=== PATIENT | female | born 1995 | race Caucasian/White ===

== ENCOUNTER 2016-04-19 03:49 | Emergency (ER) | payer SELFPAY ==
[2016-04-19 04:01] VITALS: BP 126/72
--- NOTE | 2016-04-19 04:15 | EDM.PDOC ---
ED HPI RENAL/ - General Chief Complaint: Genitourinary Problem Stated Complaint: stomach ache [phone] Time Seen by Provider: 04/19/16 04:13 Source of Information: Reports: Patient History Limitations: Reports: No limitations - History of Present Illness INITIAL COMMENTS - FREE TEXT/NARRATIVE: c/o of abdominal pain and chill, similar to previous UTI's, - Related Data Allergies/ADRs: Allergies Allergy/AdvReac Type Severity Reaction Status Date / Time No Known Allergies Allergy Verified 04/19/16 04:01 Home Meds: Home Meds . [No Known Home Meds] 01/04/16 [History] Past Medical History HEENT History: Reports: None Cardiovascular History: Reports: None Respiratory History: Reports: None Gastrointestinal History: Reports: None Genitourinary History: Reports: UTI, recurrent [employer] History: Reports: Musculoskeletal History: Reports: None Neurological History: Reports: None Psychiatric History: Reports: ADHD Endocrine/Metabolic History: Reports: None Hematologic History: Reports: Anemia Immunologic History: Reports: None Oncologic (Cancer) History: Reports: None Dermatologic History: Reports: None - Infectious Disease History Infectious Disease History: Reports: None - Past Surgical History Head Surgeries/Procedures: Reports: None Female Surgical History: Reports: Other (see below) Other Female Surgeries/Procedures: hx of bladder operation to make larger- age 6 Social & Family History - Family History Family Medical History: Noncontributory - Tobacco Use Smoking Status *Q: Never Smoker Second Hand Smoke Exposure: No - Caffeine Use Caffeine Use: Reports: None - Alcohol Use Days Per Week of Alcohol Use: 0 - Recreational Drug Use Recreational Drug Use: No ED ROS GENERAL - Review of Systems Review Of Systems: See Below Constitutional: Reports: chills HEENT: Reports: No symptoms Respiratory: Reports: no symptoms Cardiovascular: Reports: No symptoms GI/Abdominal: Reports: Abdominal pain : Reports: dysuria, frequency Musculoskeletal: Reports: no symptoms Skin: Reports: no symptoms ED EXAM, RENAL/ - Physical Exam Exam: See Below Exam Limited By: No limitations General Appearance: alert, mild distress Eye Exam: bilateral eye: EOMI Nose: normal inspection Throat/Mouth: Normal inspection Head: atraumatic, normocephalic Neck: normal inspection Respiratory/Chest: no respiratory distress, lungs clear, normal breath sounds Cardiovascular: normal peripheral pulses, regular rate, rhythm, tachycardia GI/Abdominal: normal bowel sounds, soft, tender (genera abdominal pain greater suprapubic) Back Exam: normal inspection. No: CVA tenderness (L), CVA tenderness (R) Neurological: alert, oriented Psychiatric: normal affect Skin Exam: Warm, Dry, Intact Course - Vital Signs Last Recorded V/S: Last Vital Signs Temp 100.2 F 04/19/16 03:52 Pulse 133 H 04/19/16 03:52 Resp 18 04/19/16 03:52 BP 126/72 04/19/16 03:52 Pulse Ox 99 04/19/16 03:52 - Orders/Labs/Meds Labs: Laboratory Tests 04/19/16 04/19/16 Range/Units 03:54 03:54 Urine Color Yellow (YELLOW) Urine Appearance Cloudy (CLEAR) Urine pH 6.0 (5.0-9.0) Ur Specific [place] >= 1.030 (1.005-1.030) Urine Protein 30 H (NEGATIVE) Urine Glucose (UA) Negative (NEGATIVE) Urine Ketones Negative (NEGATIVE) Urine Occult Blood Small H (NEGATIVE) Urine Nitrite Positive H (NEGATIVE) Urine Bilirubin Negative (NEGATIVE) Urine Urobilinogen 1.0 (0.2-1.0) mg/dL Ur Leukocyte Esterase Moderate H (NEGATIVE) Urine RBC 5-10 H /HPF Urine WBC 40-50 H (0-5/HPF) /HPF Ur Epithelial Cells Moderate H /HPF Urine Bacteria Moderate H (0-FEW/HPF) /HPF Urine Yeast Rare H (0/HPF) /HPF Urine HCG, Qual Negative Meds: Medications Discontinued Medications Generic Name Dose Route Start Last Admin Trade Name Magaly PRN Reason Stop Dose Admin Ciprofloxacin 500 mg 04/19/16 04:25 04/19/16 04:29 Ciprofloxacin Hcl PO 04/19/16 04:26 500 mg ONETIME ONE Administration Phenazopyridine HCl 190 mg 04/19/16 04:25 04/19/16 04:29 Urinary Pain Relief PO 04/19/16 04:26 190 mg ONETIME ONE Administration Departure - Departure Time of Disposition: 04:28 Disposition: Home, Self-Care 01 Condition: good Clinical Impression: UTI, Urinary tract infectious disease Instructions: Urinary Tract Infection, Adult, [id number] Forms: ED Department Discharge Additional Instructions: cipro 500mg one twice daily for 5 days pyridium 200mg one every 8 hours as needed #6 increase fluid intake recheck in one week, sooner if fevers, vomiting, back pain tylenol every 4 hours for discomfort/fever
[2016-04-19] MEDS ORDERED: Ciprofloxacin 500 MG Tab PO ONE (04:25)
[2016-04-19] MEDS ORDERED: Phenazopyridine 95 MG Tab PO ONE (04:25)
== END 2016-04-19 04:33 | disposition home or self-care (01) ==
LOC: DL.ED 03:49
DX: N39.0 Urinary tract infection, site not specified (principal); Z87.440 Personal history of urinary (tract) infections; Z98.890 Other specified postprocedural states
CPT/HCPCS: 81001; 81025; 99284; A9270; 99283

== ENCOUNTER 2018-05-10 10:40 | Inpatient (IN) | payer MEDICAID, OTHER ==
[2018-05-10] MEDS: Lactated Ringers 1,000 ML IV SCH ×2 (09:45→12:28)
[2018-05-10] MEDS ORDERED: Sodium Chloride 0.9% 10 ML Syringe FLUSH PRN ×2 (11:22→13:22)
[2018-05-10] MEDS ORDERED: Lidocaine 1% 30 ML SDV INJECT PRN (11:30)
[2018-05-10] MEDS ORDERED: Carboprost Tromethamine 250 MCG/1 ML Amp IM PRN ×2 (11:30→13:22)
[2018-05-10] MEDS ORDERED: Ondansetron 4 MG/2 ML SDV IV PRN (11:30)
[2018-05-10] MEDS ORDERED: Oxytocin/Normal Saline 30 UNIT/500 ML BAG IV SCH (11:30)
[2018-05-10] MEDS ORDERED: Methylergonovine 0.2 MG/1 ML Amp IM PRN (11:30)
[2018-05-10] MEDS ORDERED: Tranexamic Acid 1,000 MG in Sodium Chloride 0.9% 100 ML IV PRN ×2 (11:30→13:22)
[2018-05-10] MEDS ORDERED: Misoprostol 400 MCG (4 X 100 MCG TAB) RECTAL PRN ×2 (11:30→13:22)
[2018-05-10] MEDS ORDERED: Lactated Ringers 500 ML IV ONE (11:30)
--- NOTE | 2018-05-10 12:06 | HP ---
CHIEF COMPLAINT: Pelvic pain, increasing contractions. HISTORY OF PRESENT ILLNESS: The patient is a 22-year-old, 3, para 2-0-0 - 2, presenting at an unknown gestation, presenting with labor contractions. Patient stated that contractions started around 8 a.m. this morning, increasing in intensity and frequencies, so she presented to [facility] Labor [facility] Delivery. The patient states she has not had any care and has not seen any provider for this . She is unknown of her last menstrual period and unknown of her gestational age. She has history of preeclampsia in her first and has had 2 normal spontaneous vaginal deliveries at term. The patient has not ate or drank anything since last night. She states she is in lots of immense pain that is in her lower pelvis radiating up into her abdomen and to her back. HISTORY: The patient has had 2 prior spontaneous vaginal deliveries at term with no complications. The patient does have a history of preeclampsia with her first . PAST MEDICAL HISTORY: No significant past medical history. PAST SURGICAL HISTORY: No significant past surgical history. FAMILY HISTORY: No known family history. SOCIAL HISTORY: The patient states she lives in [place] by herself. She is visiting [facility] due to visiting her mother who is not with her at this time. REVIEW OF SYSTEMS: The patient denied fever, chills, chest pain, shortness of breath, and any lower extremity edema or swelling. No changes in bowel or bladder function at this time. otherwise ROS fully reviewed and felt to be contributory per HPI OBJECTIVE: Vital Signs: Pending. General: Patient is in extreme pain, screaming, and yelling in the bed. HEENT: Grossly normal. Pulmonary: Lungs are clear to auscultation bilaterally. Cardiovascular: Regular rate and rhythm. No murmurs noted. Abdomen: Nontender to palpation. Gravid uterus measuring 34 cm. Unknown of position. Extremities: No lower extremity edema. Nontender to calf palpation bilaterally. Neurologic: Grossly normal. Cranial nerves 2 through 12 intact. Cervical Check: Cervical check was refused due to intolerable condition. Guessing +1 station measuring 34 cm for gestation. LABORATORY DATA: Recent Lab Results: Hematology: WBC 11.1, RBC 3.86, hemoglobin 7.0, hematocrit 23.1, and platelet count 367. Ultrasound pending. ASSESSMENT: The patient is a 22-year-old, 3, para 2, presenting in labor of unknown gestational age with no care. History of preeclampsia in previous , on vitamins, and has no allergies. PLAN: Routine no care labs and u/s is pending. Waiting on ultrasound. Due to inability to tolerate exam and ultrasound, unavailable at this time- We are watching clinically and closely. The patient was seen today and evaluated by myself and Dr. Fan Ramey. Assessment is under advisement of Dr. Fan Ramey. seen and agreed-RENÉ MOD /[id number] ADWOA
[2018-05-10] MEDS ORDERED: Acetaminophen 325 MG Tab PO PRN (13:22)
[2018-05-10] MEDS ORDERED: Benzocaine/Menthol 20%-0.5% Spray 56 GM Canister TOP PRN (13:22)
[2018-05-10] MEDS ORDERED: Oxytocin 10 Units/1 ML SDV IM PRN (13:22)
[2018-05-10] MEDS ORDERED: Simethicone 80 MG Tab.Chew PO PRN (14:00)
[2018-05-10] MEDS: Docusate Sodium 100 MG Cap PO PRN (16:19)
[2018-05-10] MEDS: Ibuprofen 800 MG Tab PO PRN (16:19)
[2018-05-10] MEDS: Acetaminophen 325 MG Tab PO PRN (20:29)
[2018-05-10] MEDS ORDERED: Zolpidem 5 MG Tab PO PRN (21:00)
[2018-05-11] MEDS: Ibuprofen 800 MG Tab PO PRN (00:54)
[2018-05-11] MEDS: Acetaminophen 325 MG Tab PO PRN ×2 (04:48→14:27)
[2018-05-11] MEDS: Docusate Sodium 100 MG Cap PO PRN ×2 (09:04→20:19)
[2018-05-11] MEDS: Prenatal Multivitamin with Calcium/Folic Acid/Iron Tab PO SCH (09:04)
--- NOTE | 2018-05-11 11:21 | PN ---
DATE: 05/11/2018 SUBJECTIVE: The patient is a 22-year-old, 3, para 2, now para 3 female, who presented with no care in labor. The patient delivered a male via spontaneous vaginal delivery. Overnight, the patient reports doing well. She reports ability to get up to the bathroom, urinating well, tolerating general diet. She reports a normal amount of bleeding and cramping. She denies headaches, blurred vision, chest pain, shortness of breath, or lower extremity edema. Due to anemia of , the patient did receive 2 units of packed red blood cells yesterday and today reports feeling much better after that treatment. OBJECTIVE: Vital Signs: Temperature 97.6, HR 68 bpm, BP 130/82, RR 16 breaths per minute, and O2 saturation 100% on room air. General: Awake, alert, no acute distress. HEENT: Grossly normal. Cardiovascular: Regular rate and rhythm. No murmurs noted. Pulmonary: Lungs are clear to auscultation bilaterally. Abdomen: Soft, nondistended, normoactive bowel sounds. The patient is tender to palpation in lower abdomen. The patient's uterus is noted to be 2 cm below umbilicus and firm. Extremities: No lower extremity edema or calf tenderness to palpation bilaterally. Neurologic: Grossly normal. cbc reviewed from this morning with hgb increased. ASSESSMENT: The patient is a 22-year-old, 3, para now 3, status post a day #1 from spontaneous vaginal delivery to a male infant. The patient is doing well. PLAN: 1. Routine cares. 2. CBC ordered for tomorrow morning due to anemia and transfusion needed post delivery. 3. Continue to follow clinically and closely. The patient was seen and evaluated today by myself and Dr. Fan Ramey. Assessment and plan are under advisement of Dr. Ramey. seen and agreed-LUISW [facility] /[id number] MTDKaron
--- NOTE | 2018-05-11 12:10 | DEL ---
DATE: 05/10/2018 PREOPERATIVE DIAGNOSES: 1. Intrauterine , questionable dates. 2. No care. 3. Labor upon admission. 4. Advanced cervical dilation, suspect upon admission, unable to check cervix, because ultrasound not available or done. 5. Group B Streptococcus unknown. 6. History of preeclampsia with previous . 7. Anemia of with hemoglobin of 7.0, type and cross match for 2 units called stat as soon as that was noted. 8. 3, para 2-0-0-2. POSTOPERATIVE DIAGNOSES: 1. Intrauterine - delivered, suspect near term. 2. No care. 3. Labor upon admission. 4. Advanced cervical dilation, suspect upon admission, unable to check cervix, because ultrasound not available or done. 5. Group B Streptococcus unknown. 6. History of preeclampsia with previous . 7. Anemia of with hemoglobin of 7.0, type and cross match for 2 units called stat as soon as that was noted. 8. 3, para 2-0-0-2. 9. Abruption noted with delivery of bloody fluid with as well as old blood clot noted with delivery of the placenta approximately 200 mL in size. PROCEDURES PERFORMED: NST followed by spontaneous vaginal delivery. KILN FURNITURE CASTER: GEOVANY GrantIII. ANESTHESIA/ANALGESIA: None. ESTIMATED BLOOD LOSS: 300 mL. FINDINGS: Male. scores and weight pending. Appears near term. SUMMARY OF EVENTS: The patient is a 22-year-old, G3, P2-0-0-2, no care, who presented with contractions and suspected active labor. Stat ultrasound was called for, but was unable to be done as they were busy doing an echocardiogram. Subsequently, the patient was moved to a room as it was felt that she was transitioning and in labor. Vaginal exam was unable to be done, gingerly speculum exam was not tolerated by the patient. GC, Chlamydia, and wet prep were obtained and GBS was obtained as well. While in labor, the patient had big lewis of clear fluid. She felt that she needed to push and with the next contraction, she started pushing and vertex was noted. Socorro and myself donned sterile gown and gloves, and the patient pushed with contractions and vertex was delivered in RONAK presentation, followed by anterior and posterior shoulder as well as rest of the infant without difficulty with bloody- tinged fluid noted. Mouth and nares were suctioned. Cord was doubly clamped and cut, and was brought to team. Then, approximately 10 mL cord blood obtained for labs. Placenta was then delivered with gentle cord traction and fundal massage, delivered within approximately 5 to 10 minutes with a blood clot noted about 200 mL in size that was old and dark with the placenta, and trailing membranes which were gently teased from the vaginal region. Thereafter, Pitocin was started as well as fundal massage and bleeding significantly decreased. Small first-degree perineal laceration was noted without bleeding, non-repaired after discussion with the patient, less than 1 cm. A cath UA was done at this point in time and labs were obtained. At the current time of dictation, type and cross match is pending, to be given 2 units of packed red blood cells to this patient due to her severe anemia and now with suspected abruption. Her vital signs blood [id number] and 112/67 and heart rate 87, therefore we will proceed with blood transfusion as soon as blood is ready. The patient understands and agrees with the above treatment plan. Mother and infant are currently stable at the time of dictation. [facility] /[id number]
--- NOTE | 2018-05-11 12:39 | OBOUT ---
DATE: 05/10/2018 DATE AND TIME OF NST: Date: 05/10/2018. Time: 10:50 to 11:10. REASON FOR NST: 1. Intrauterine , questionable dates. 2. No care. 3. Contractions. 4. GBS unknown. 5. 3, para 2-0-0-2. 6. History of preeclampsia with previous . NST INTERPRETATION: During this time period, heart tone baseline is approximately 130 and there are at least two 15 x 15 beat per minute accelerations making this strip reactive. It is also noted to be reassuring. Tocometer reveals potential of 6 contractions during this time period. [employer] by the patient and breathing through them. PLAN: As the patient has had no care, initial vitals revealed blood pressure 131/77, heart rate 96, temperature 98.7, and no care labs were drawn. Stat ultrasound was called for, however, ultrasound is busy doing an echo at this point in time and there are no techs available to get the ultrasound done, therefore attempt was made for a gingerly speculum exam, and the patient refused this and did not tolerate even swabs to obtain a wet prep, GC, and chlamydia, which were obtained gingerly. Plan, at this point in time, we are awaiting ultrasound to further delineate future treatment plans. Fundal measurement was around 34, however, with the swab, it feels as if baby's head is lodged well into the pelvis and may be at a +1 station. Cannot do a vaginal exam at this point in time, because cannot rule out previa and do not know the presentation of the child at this time. We will need to follow closely. We will consider calling in the OR crew to be ready and available in the off chance that there is any concerns with the ultrasound once ultrasound is able to be done. Plans were discussed with the patient. I did discuss with her pain management. At this point in time, we will continue to follow clinically and closely, and we will proceed from there. The patient understands and agrees with the above treatment plan. [facility] /[id number]
[2018-05-12 09:10] VITALS: BP 126/90; PULSE 76
[2018-05-12] MEDS: Docusate Sodium 100 MG Cap PO PRN (09:32)
[2018-05-12] MEDS: Prenatal Multivitamin with Calcium/Folic Acid/Iron Tab PO SCH (09:32)
[2018-05-12] MEDS: Acetaminophen 325 MG Tab PO PRN (11:37)
--- NOTE | 2018-05-12 15:14 | DISCH ---
ADMITTING DIAGNOSES: 1. Intrauterine of unknown dates. 2. No care. 3. Admission in labor. 4. Advanced cervical dilation with the patient unable to tolerate exam, status unknown. 5. Group B streptococcus status unknown. 6. History of preeclampsia. 7. Anemia of . DISCHARGE DIAGNOSES: 1. Intrauterine of unknown dates. 2. No care. 3. Admission in labor. 4. Advanced cervical dilation with the patient unable to tolerate exam, status unknown. 5. Group B streptococcus status unknown. 6. History of preeclampsia. 7. Anemia of . 8. Placental abruption noted upon delivery. 9. Treatment with 2 units of packed red blood cells due to anemia. 10.First-degree laceration that did not require repair. BRIEF HISTORY: The patient is a 22-year-old, 3, now para 3 female with the above-listed diagnoses, who presented to Labor and Delivery in active labor with significant history of no care. Upon presentation, the patient's vitals were 131/77, heart rate 96, temperature 98.7, and no care. Labs were drawn. A stat ultrasound was called for; however, the ultrasound was busy and therefore attempt was made for a genital spec exam and the patient refused. The patient did not tolerate vaginal swab exam for wet prep, GC, chlamydia, but was able to obtain swabs. As the patient did not tolerate treatments, fundal measurement was measured around 34 cm. The patient was monitored closely, labor progressed, and upon , the baby's head was noted in canal. Baby boy was delivered at 11:51, was stimulated and bulb suctioned, cord was cut, and placed in warmer for further assessment. The patient was noted to have a first- degree perineal laceration that was hemostatic and did not need repair. HOSPITAL COURSE: Good. The patient initially endorsed soreness and tenderness. She reports tolerating general diet, ambulation, and urination well. She had mild cramping and mild lochia. She denied any symptoms of headaches, blurred vision, chest pain, shortness of breath, dizziness, lightheadedness, or lower extremity swelling throughout hospital stay. The patient is excited to return home and is feeling well enough to be discharged. managed services consultant was consulted and saw patient during her hospital stay. DISCHARGE CONDITION: Good. DISCHARGE PHYSICAL EXAMINATION: Vital Signs: Temp 98.6, HR 76 bpm, BP 126/90, RR 18 breaths per minute, and O2 saturation 99% on room air. General: Awake, alert, cooperative, resting in bed. HEENT: Grossly normal. Pulmonary: Lungs are clear to auscultation bilaterally. Cardiovascular: Regular rate and rhythm. No murmurs noted. Abdomen: Soft, nontender, and mildly distended. Normoactive bowel sounds. Uterine fundus palpated 2 cm below the umbilicus. Extremities: No edema, erythema, or tenderness noted in the lower extremities bilaterally. Neurologic: Cranial nerves 2 through 12 intact. No sensory or motor deficits noted. LABORATORY RESULTS: Hematology: WBC 11, RBC 5.01, HGB 10.5, HCT 33, MCV 65.9, MCH 21, MCHC 31.8, platelet count 328. Urinalysis: Color light yellow, appearance turbid, pH 7, specific gravity 1.010, protein 30, glucose negative, ketones negative, occult blood large, nitrites negative, bilirubin negative, urobilinogen 0.2, leukocyte esterase large, rbc's greater than 100, wbc's more than 100, epithelial cells many, amorphous sediment many, bacteria many, mucus many. Toxicology: Negative. Serology: RPR nonreactive, hep B surface antigen negative, hepatitis C antibody less than 0.01, HIV 1 antibody nonreactive, HIV 2 antibody nonreactive, HIV p24 antigen nonreactive. Rubella immune status, immune. Rubella IgG antibody positive. DISCHARGE MEDICATIONS: 1. Iron supplementation. 2. vitamin. 3. Colace. DISPOSITION: Home to stay with mother and 2 older children. FOLLOWUP: The patient was advised to follow up with Dr. Ramey in clinic on Monday. The patient is in agreement with this plan. The patient was seen and evaluated today by myself and Dr. Aaliyah Magana. Discharge evaluation is under advisement of Dr. Aaliyah Magana. -Socorro Skaggs MS-III [facility] /[id number] Patient seen and examined. Agree with note as scribed on my behalf by Socorro Skaggs MS3. -[facility] 05/22/18 [id number] MTDD
== END 2018-05-12 14:00 | disposition home or self-care (01) | DRG 807 ==
LOC: EDSTATUS 10:47 → DL.OBCHECK 10:48 → DL.OB 11:25 → OBSVTOIN 11:51 → DL.MS 22:45
PROVIDERS: ADMIT Family Medicine; ATTEND Family Medicine
PROC: 10E0XZZ Delivery of Products of Conception, External Approach (ICD-10-PCS; principal; 2018-05-10)
PROC: 4A1HXCZ Monitoring of Products of Conception, Cardiac Rate, External Approach (ICD-10-PCS; 2018-05-10)
PROC: 30233N1 Transfusion of Nonautologous Red Blood Cells into Peripheral Vein, Percutaneous Approach (ICD-10-PCS; 2018-05-10)
DX: O99.013 Anemia complicating pregnancy, third trimester (principal); Z37.0 Single live birth; O70.0 First degree perineal laceration during delivery
CPT/HCPCS: 36415; 36430; 51701; 59409; 80305-QW; 80307; 81001; 85027; 86592; 86762; 86803; 86850; 86900; 86901; 86920; 86922; 87081; 87086; 87088; 87186; 87210; 87340; 87389; 87491; 87591; A9270-GY; J2590; J7120; P9016